=== PATIENT | male | born 1990 | race Native Hawaiian/Other Pacific Islander ===

== ENCOUNTER 2017-02-01 14:44 | Inpatient (IN) | payer OTHER ==
[~2017-02-01] VITALS: Ht 193 cm; Wt 88.9 kg
[2017-02-01 14:49] VITALS: BP 135/78; TEMP 97.7
[2017-02-01 16:00] LABS: PLATELET COUNT 214 K/uL (142-355)
[2017-02-01 16:12] LABS: POTASSIUM 3.7 mmol/L (3.6-5.2); SODIUM 136 mmol/L (136-145)
[2017-02-01 20:00] VITALS: BP 128/75; TEMP 97.8
[2017-02-01 21:00] VITALS: BP 131/72; TEMP 97.8
[2017-02-01 21:01] VITALS: BP 131/72; TEMP 97.8; Ht 193 cm; Wt 88.9 kg
[2017-02-01 22:00] VITALS: BP 125/64
[2017-02-02] VITALS (20 sets, daily range): BP systolic 109–138; BP diastolic 60–79; TEMP 97.1–98.1
[2017-02-02 08:11] LABS: PLATELET COUNT 198 K/uL (142-355)
[2017-02-02 08:30] LABS: SODIUM 137 mmol/L (136-145)
[2017-02-03 00:25] VITALS: BP 120/55; TEMP 98.1
[2017-02-03 05:24] LABS: PLATELET COUNT 207 K/uL (142-355)
[2017-02-03 05:45] LABS: POTASSIUM 4.7 mmol/L (3.6-5.2); SODIUM 134 mmol/L (136-145)
[2017-02-03 08:00] VITALS: BP 102/47; TEMP 98
[2017-02-03 12:00] VITALS: BP 118/61; TEMP 97.9
== END 2017-02-03 15:32 | disposition home or self-care (01) | DRG 581 ==
LOC: ED 14:44 → ICU 18:09 → MED/SURG 02-02 22:10
PROVIDERS: Family Medicine; ADMIT Internal Medicine
PROC: 0J9K0ZZ Drainage of Left Hand Subcutaneous Tissue and Fascia, Open Approach (ICD-10-PCS; principal; 2017-02-02)
DX: L03.114 Cellulitis of left upper limb (principal)
CPT/HCPCS: 36415; 80053; 80202; 80307; 82550; 83605; 83735; 85027; 85651; 86140; 87040; 87070; 87077; 87185; 87205; 96365; 96375; 99284; G0479; J1170; J1956; J2543; J2550; J3490; Q9963

== ENCOUNTER 2021-12-10 13:42 | Outpatient (CLI) | payer OTHER ==
[2021-12-10 14:24] LABS: PLATELET COUNT 210 K/uL (142-355)
[2021-12-10 14:29] LABS: POTASSIUM 3.5 mmol/L (3.6-5.2)
== END 2021-12-10 20:05 | disposition home or self-care (01) ==
LOC: LABW 13:42
PROVIDERS: ATTEND Nurse Practitioner Primary Care
DX: R60.0 Localized edema (principal)
CPT/HCPCS: 36415; 80053; 83880; 85027

== ENCOUNTER 2022-12-02 13:17 | Outpatient (CLI) | payer OTHER | END 2022-12-02 18:57 | disposition home or self-care (01) | LOC: RAD 13:17 | PROVIDERS: ATTEND Nurse Practitioner Family | DX: S60.221A Contusion of right hand, initial encounter (principal); Y92.89 Other specified places as the place of occurrence of the external cause ==